=== PATIENT | female | born 1975 | race Caucasian/White ===

== ENCOUNTER 2023-02-01 21:52 | Emergency (ER) | payer BC ==
[~2023-02-01] VITALS: Ht 165.1 cm; Wt 58.0 kg
[2023-02-01] MEDS ORDERED: NITROGLYCERIN 0.4MG SUBL TABLET As Ordered ONE (22:03)
[2023-02-01] MEDS ORDERED: UNRESOLVED CLARIFICATION ENTRY XX STA (22:04)
[2023-02-01] MEDS: NITROGLYCERIN 0.4MG SUBL TABLET SL PRN ×3 (22:05→22:16)
[2023-02-01 22:11] LABS: BASO # 0.1 10^3/uL (0.0-0.2); BASO % 1.1 % (0.0-1.0); EOS # 0.2 10^3/uL (0.0-0.5); EOS % 2.1 % (0.0-3.0); HEMATOCRIT 37.9 % (36.0-47.0); HEMOGLOBIN 13.2 g/dl (12.0-15.5); LYMPH # 3.4 10^3/uL (1.5-5.0); LYMPH % 40.2 % (24.0-44.0); MEAN CORPUSCULAR HEMOGLOBIN 34.2 pg (27.0-33.0); MEAN CORPUSCULAR HGB CONC 34.8 g/dl (32.0-36.5); MEAN CORPUSCULAR VOLUME 98.2 fl (80.0-96.0); MONO # 0.7 10^3/uL (0.0-0.8); MONO % 7.8 % (2.0-8.0); NEUTROPHILS # 4.1 10^3/uL (1.5-8.5); NEUTROPHILS % 48.6 % (36.0-66.0); PLATELET COUNT, AUTOMATED 265 10^3/uL (150-450); RED BLOOD COUNT 3.86 10^6/uL (4.00-5.40); WHITE BLOOD COUNT 8.4 10^3/uL (4.0-10.0)
[2023-02-01 22:16] VITALS: BP 123/75
[2023-02-01 22:22] LABS: INR 0.86; PROTHROMBIN TIME 11.9 SECONDS (12.5-14.5)
[2023-02-01 22:25] LABS: D-DIMER QUANT 662.81 ng/ml (<500)
[2023-02-01 22:43] LABS: CK-MB VALUE MASS 2.4 NG/ML (<3.6); LIPASE 51 U/L (12-53)
[2023-02-01 22:45] LABS: ALBUMIN 3.4 G/DL (3.2-5.2); ALKALINE PHOSPHATASE 60 U/L (46-116); ALT/SGPT 28 U/L (7.0-40); AST/SGOT 37 U/L (<34); BILIRUBIN,DIRECT < 0.1 MG/DL (<0.4); BILIRUBIN,TOTAL 0.3 MG/DL (0.3-1.2); BLOOD UREA NITROGEN 16 MG/DL (9-23); CARBON DIOXIDE LEVEL 25 MMOL/L (20-31); CHLORIDE LEVEL 109 MMOL/L (98-107); CREATININE FOR GFR 0.65 MG/DL (0.55-1.30); GLOMERULAR FILTRATION RATE > 60.0 (>58); GLUCOSE, FASTING 90 MG/DL (60-100); POTASSIUM SERUM 3.6 MMOL/L (3.5-5.1); SODIUM LEVEL 143 MMOL/L (136-145); TOTAL PROTEIN 6.3 G/DL (5.7-8.2)
[2023-02-01 22:47] LABS: THYROID STIMULATING HORMONE 10.051 uIU/ML (0.55-4.78)
[2023-02-01 22:49] LABS: CPK CREATINE PHOSPHOKINASE 170 U/L (34-145); MB/CK RELATIVE INDEX 1.41 (< OR =4)
[2023-02-01] MEDS ORDERED: PANTOPRAZOLE 40MG VIAL IV ONE (22:55)
[2023-02-01] MEDS ORDERED: SUCRALFATE SUSP 1GM/10ML UD PO ONE (22:55)
[2023-02-01 23:00] VITALS: TEMP 98
[2023-02-01 23:34] LABS: CK-MB VALUE MASS 2.1 NG/ML (<3.6)
[2023-02-01 23:35] LABS: MB/CK RELATIVE INDEX 1.34 (< OR =4)
[2023-02-02] MEDS ORDERED: diphenhydrAMINE 50MG/ML VIAL IV STA (01:18)
[2023-02-02] MEDS ORDERED: methylPREDNISolone 125MG 2ML VIAL IV ONE (01:20)
[2023-02-02 01:21] LABS: CK-MB VALUE MASS 1.8 NG/ML (<3.6)
[2023-02-02 01:23] LABS: MB/CK RELATIVE INDEX 1.19 (< OR =4)
[2023-02-02] MEDS ORDERED: ISOVUE-370 76% 100ML VIAL As Ordered ONE (01:27)
[2023-02-02 01:30] VITALS: BP 138/86; O2SAT 96
[2023-02-02] MEDS ORDERED: LORazepam 2 MG/ML 1ML VIAL IV STA (01:33)
[2023-02-02] MEDS ORDERED: PROT1TAB2 PO (04:14)
[2023-02-02] MEDS ORDERED: CARA1TAB6 PO (04:14)
== END 2023-02-02 00:16 | disposition home or self-care (01) ==
LOC: M ED 21:52 → EDBD 21:52 → M ED 02-02 00:16
DX: R07.9 Chest pain, unspecified (principal); I25.2 Old myocardial infarction; M06.9 Rheumatoid arthritis, unspecified; Z91.041 Radiographic dye allergy status
CPT/HCPCS: 71045; 71275; 80048; 80076; 82550; 82553; 83690; 84443; 84484; 85025; 85379; 85610; 87635; 93005; 93041; 93970; 94760; 96374; 96375; 99285; C9113; J1200; J2060; J2930; Q9967